=== PATIENT | male | born 1990 | race Caucasian/White ===

== ENCOUNTER 2017-08-30 00:58 | Emergency (ER) | payer SELFPAY ==
[2017-08-30 02:13] LABS: #Basophils 0.1 thou/uL (0.0-0.2); #Eosinphils 0.2 thou/uL (0.0-0.7); #Lymphocytes 1.8 thou/uL (1.20-3.40); #Monocytes 0.7 thou/uL (0.11-0.59); #Neutrophils 14.3 thou/uL (1.40-6.50); %Basophils 0.4 % (0.0-1.0); %Eosinophils 0.9 % (0.0-10.0); %Lymphocytes 10.7 % (21.0-51.0); %Monocytes 4.2 % (0.0-10.0); Hematocrit 43.8 % (42.0-52.0); Mean Platelet Volume 7.1 fL (7.4-10.4)
[2017-08-30 02:24] LABS: ALT (SGPT) 76 U/L (8-55); AST (SGOT) 30 U/L (5-34); Alkaline Phosphatase 91 U/L (40-150); Anion Gap 11 mmol/L (10-20); BUN (Urea Nitrogen) 18 mg/dL (8.9-20.6); Bilirubin, Total 0.3 mg/dL (0.2-1.2); Calc. Creatinine Clearance 0 mL/min (70-130); Calcium 9.8 mg/dL (7.8-10.44); Carbon Dioxide 28 mmol/L (22-29); Chloride 99 mmol/L (98-107); Estimated GFR-MDRD Greater than 90; Globulin 2.9 g/dL (2.4-3.5); Lipase 30 U/L (8-78); Protein, Total 7.5 g/dL (6.0-8.3)
[2017-08-30] MEDS ORDERED: Ondansetron HCl/PF 4 MG/2 ML Vial ONE (02:59)
[2017-08-30] MEDS ORDERED: Famotidine/PF 20 mg/2ml Vial SLOW IVP SCH (03:15)
[2017-08-30] MEDS ORDERED: Famotidine/PF 20 mg/2ml Vial ONE (03:22)
[2017-08-30] MEDS ORDERED: Lidocaine Viscous Sol 2% 15 ml UD Cup ONE (05:21)
[2017-08-30] MEDS ORDERED: Mag-Al 1200 mg/1200 mg/30 ML UDCUP ONE (05:21)
--- NOTE | 2017-08-30 08:05 | RAD ---
1 VIEW CHEST WITH ABDOMEN 2 VIEWS: Date: 08/30/17 HISTORY: Abdominal pain and emesis. COMPARISON: 03/14/13. FINDINGS: 1 VIEW CHEST: Normal cardiac silhouette. Lungs and pleural spaces are clear. ABDOMEN 2 VIEWS: Nonspecific bowel gas pattern. No pneumoperitoneum. IMPRESSION: 1. No acute cardiopulmonary process. 2. Nonspecific bowel gas pattern. POS: H
[2017-08-30] MEDS ORDERED: ISOVUE-370 76%-LOCM 1 ML ONE (11:46)
--- NOTE | 2017-08-30 15:24 | CT ---
PRELIMINARY REPORT/[facility]/EMERGENCY AFTER HOURS PROCEDURE: EXAM: CT Abdomen and Pelvis With Intravenous Contrast EXAM DATE/TIME: Exam ordered 08/30/2017 6:09 AM CLINICAL HISTORY: 26 years old, male; Pain; Abdominal pain; Generalized TECHNIQUE: Axial computed tomography images of the abdomen and pelvis with intravenous contrast. Coronal reformatted images were created and reviewed. CONTRAST: 100 mL of ISOVUE administered intravenously. COMPARISON: No relevant prior studies available. FINDINGS: Lower thorax: There is subpleural atelectasis of the dependent portions of the lungs. ABDOMEN: Liver: There is a focal liver hypodensity that cannot be further characterized on the current examina tion. Gallbladder and bile ducts: The gallbladder is normal. There is no evidence of biliary ductal dilatio n. No calcified stones. Pancreas: The pancreas is normal. No ductal dilation. Spleen: The spleen is normal. Adrenals: The adrenal glands are normal. Kidneys and ureters: The kidneys are normal. No hydronephrosis. Stomach and bowel: The stomach is normal. The duodenum is unremarkable. The colon is normal. There is no evidence of intestinal perforation or obstruction. There is nonspecific colonic wall thic kening at the splenic flexure. This is probably related to incomplete distention. Appendix: A normal appendix is identified. PELVIS: Bladder: The bladder is normal. Reproductive: The prostate gland and seminal vesicles are normal. ABDOMEN and PELVIS: Intraperitoneal space: Normal. No free air. No significant fluid collection. Bones/joints: No acute fracture. No dislocation. Soft tissues: Normal. Vasculature: Normal. No abdominal aortic aneurysm. Lymph nodes: Normal. No enlarged lymph nodes. IMPRESSION: No acute abdominal pelvic pathology. Thank you for allowing us to participate in the care of your patient. Dictated and Authenticated by: Abram Nina MD 08/30/2017 6:42 AM Central Time ([place] & [place]) FINAL REPORT ABDOMEN AND PELVIS CT WITH CONTRAST: Date: 08/30/17 FINDINGS/IMPRESSION: No significant discrepancies with the preliminary report provided above. There is incomplete assessment of the bowel without enteric contrast. As discussed above, there are s cattered areas of colonic wall prominence, which may be due to underdistention and unopacified state, notably at the region of the splenic flexure, as well as within the rectosigmoid region. Alternative ly, findings could be related to foci of inflammation related to an inflammatory or infectious proces s. Recommend clinical correlation in this regard and, as necessary, a dedicated follow-up with techni que to evaluate the bowel. Small hypodensity of left hepatic lobe, too small to further characterize. There is a generalized non specific heterogeneity of the hepatic parenchyma with a slight degree of periportal edema. This could be on the basis of fluid resuscitation, although is nonspecific. Recommend correlation with liver fu nction enzymes to exclude entity such as hepatitis.
== END 2017-08-30 07:33 | disposition home or self-care (01) ==
LOC: ERS 00:58
DX: R10.13 Epigastric pain (principal); F17.210 Nicotine dependence, cigarettes, uncomplicated
CPT/HCPCS: 36415; 74022; 74177; 80053; 83690; 85025; 96361; 96372; 96374; 96375; 99406; J2405; S0028

== ENCOUNTER 2018-04-29 19:07 | Emergency (ER) | payer SELFPAY | END 2018-04-29 19:39 | disposition home or self-care (01) | LOC: ERS 19:07 | DX: L03.115 Cellulitis of right lower limb (principal); F17.210 Nicotine dependence, cigarettes, uncomplicated | CPT/HCPCS: 99283 ==

== ENCOUNTER 2018-05-11 13:36 | Emergency (ER) | payer SELFPAY | END 2018-05-11 16:08 | disposition left against medical advice (07) | LOC: ERS 13:36 | DX: Z53.21 Procedure and treatment not carried out due to patient leaving prior to being seen by health care provider (principal) ==